=== PATIENT | female | born 1965 | race Caucasian/White ===

== ENCOUNTER → 2016-11-22 | Outpatient (CLI) | payer OTHER ==
[~2016-11-22] MED LIST: ALDACTONE 25MG25 M1 PO; ALTACE 2.5MG T2.5 MG PO; ASPIRIN E.C. 8181 MG PO; BRILINTA90 MG PO; CAPOTEN 50MG50 MG PO; COREG 25MG25 MG/TAB PO; COUMADIN 5MG5 MG/TAB PO; COUMADIN4 MG PO; DAILY MULTIPLE1 T19 PO; LANOXIN 0.120.125 MG PO; MULTI VITAMINS1 TAB PO; MULTIPLE VITAMI1 CAP PO; NITROSTAT0.4 MG/TAB SL
== END ==
LOC: MC.RAD 08:39
DX: Z12.31 Encounter for screening mammogram for malignant neoplasm of breast (principal)

== ENCOUNTER → 2018-04-18 | Outpatient (CLI) | payer BC | LOC: MC.RAD 16:58 | DX: Z12.31 Encounter for screening mammogram for malignant neoplasm of breast (principal) ==

== ENCOUNTER → 2021-05-19 | Outpatient (CLI) | payer BC | LOC: MC.RAD 16:25 | DX: Z12.31 Encounter for screening mammogram for malignant neoplasm of breast (principal) ==